=== PATIENT | male | born 1965 | race Caucasian/White ===

== ENCOUNTER 2024-08-20 15:34 | Inpatient (IN) | payer BC ==
[2024-08-20 15:56] LABS: BASOPHILS PERCENT AUTO 0.2 % (0.0-1.0); EOSINOPHILS PERCENT AUTO 0.2 % (0.0-6.0); HEMATOCRIT 42.1 % (42.0-52.0); HEMOGLOBIN 14.5 gm/dl (14.0-18.0); IMMATURE GRAN ABSOLUTE AUTO 0.18 K/mm3 (0.00-0.05); IMMATURE GRAN PERCENT AUTO 1.2 % (0.0-0.4); LYMPHOCYTES PERCENT AUTO 6.3 % (24.0-44.0); MEAN CORPUSCULAR HEMOGLOBIN 30.9 pg (28.0-32.0); MEAN CORPUSCULAR HGB CONC 34.4 g/dl (32.0-36.0); MEAN CORPUSCULAR VOLUME 89.6 fl (83.0-99.0); MEAN PLATELET VOLUME 9.4 fl (9.4-12.4); MONOCYTES ABSOLUTE AUTO 1.9 K/mm3 (0.0-0.8); MONOCYTES PERCENT AUTO 12.7 % (0.0-8.0); NEUTROPHILS ABSOLUTE AUTO 12.1 K/mm3 (1.8-7.7); NEUTROPHILS PERCENT AUTO 79.4 % (41.0-71.0); PLATELET COUNT,PLT 166 K/mm3 (150-400); WHITE BLOOD CELL COUNT,WBC 15.18 K/mm3 (3.9-11.3)
[2024-08-20 16:21] LABS: LACTIC ACID 1.6 mmol/L (0.4-2.0)
[2024-08-20 16:22] LABS: A/G RATIO 0.6 (1-2); ALANINE AMINOTRANSFERASE,ALT 44 U/L (16-63); ALBUMIN 2.7 g/dl (3.4-5.0); ALKALINE PHOSPHATASE 106 U/L (46-116); ANION GAP 18.5 (5-15); ASPARTATE AMNIOTRANSFERASE,AST 39 U/L (15-37); BILIRUBIN TOTAL 0.7 mg/dL (0.2-1.0); BLOOD UREA NITROGEN,BUN 17 mg/dL (7-18); BUN/CREATININE RATIO 14.2 (14-18); CALCIUM 9.2 mg/dL (8.5-10.1); CARBON DIOXIDE,CO2 23 mEq/L (21-32); CHLORIDE,CL 91 mEq/L (98-107); CREATININE 1.2 mg/dL (0.7-1.3); EST CRCL DRUG DOSING (CG) 67.59 mL/min; ESTIMATED GFR 69 mL/min (>60); GLUCOSE RANDOM 151 mg/dL (70-99); LIPASE 65 U/L (16-77); POTASSIUM,K 3.5 mEq/L (3.5-5.1); PROTEIN TOTAL,TP 7.6 g/dl (6.4-8.2); SODIUM,NA 129 mEq/L (136-145); TROPONIN I HIGH SENSITIVITY 8 pg/mL (<=76)
[2024-08-20 16:43] LABS: SLIDE REVIEW ABNORMAL SMEAR
[2024-08-20 16:49] LABS: C-REACTIVE PROTEIN > 25.00 mg/dL (<0.30)
[2024-08-20] MEDS ORDERED: Naloxone 0.4 MG/ML SDV IVPUSH PRN ×2 (16:51→19:19)
[2024-08-20] MEDS: fentaNYL 100 MCG/2 ML SDV IVPUSH ONE ×2 (16:59→20:00)
[2024-08-20] MEDS: Sodium Chloride 0.9% 10 ML Syringe FLUSH ONE (17:00)
[2024-08-20] MEDS: Sodium Chloride 0.9% 10 ML Syringe FLUSH PRN (17:00)
[2024-08-20] MEDS: Sodium Chloride 0.9% 1,000 ML IV SCH (17:00)
[2024-08-20] MEDS: Iopamidol 612 MG/ML 100 ML Bottle IVPUSH ONE (17:50)
[2024-08-20] MEDS: Piperacillin/Tazobactam 4.5 GM in Sodium Chloride 0.9% 100 ML IV ONE (18:50)
[2024-08-20] MEDS ORDERED: Propofol 200 MG/20 ML SDV ONE (19:35)
[2024-08-20] MEDS ORDERED: Midazolam 1 MG/ML 2 ML SDV ONE (19:35)
[2024-08-20] MEDS ORDERED: Rocuronium 50 MG/5 ML Vial ONE ×2 (19:36→20:58)
[2024-08-20] MEDS ORDERED: Dexamethasone 4 MG/ML 5 ML MDV ONE (19:36)
[2024-08-20] MEDS ORDERED: fentaNYL 250 MCG/5 ML SDV ONE (19:36)
[2024-08-20] MEDS ORDERED: EPINEPHrine 1 MG/ML SDV ONE (19:38)
[2024-08-20] MEDS ORDERED: Morphine 2 MG/ML SYRINGE IVPUSH PRN (19:53)
[2024-08-20 20:03] LABS: APPEARANCE,URINE CLEAR (Clear); BILIRUBIN,URINE NEGATIVE (Negative); COLOR,URINE YELLOW (Yellow); GLUCOSE,URINE NEGATIVE (Negative); KETONES,URINE 1+ (Negative); LEUKOCYTE ESTERASE,URINE NEGATIVE (Negative); NITRITE,URINE NEGATIVE (Negative); OCCULT BLOOD,URINE NEGATIVE (Negative); PROTEIN,URINE NEGATIVE (Negative)
[2024-08-20] MEDS ORDERED: Phenylephrine 1% 10 MG/ML SDV ONE (20:23)
[2024-08-20] MEDS ORDERED: Sodium Chloride 0.9% 100 ML ONE (20:24)
[2024-08-20] MEDS ORDERED: ceFAZolin 2 GM Vial ONE (20:29)
[2024-08-20] MEDS ORDERED: Sugammadex Sodium 200 MG/2 ML VIAL IV ONE (22:12)
[2024-08-20] MEDS ORDERED: fentaNYL 100 MCG/2 ML SDV IVPUSH PRN (22:21)
[2024-08-20] MEDS ORDERED: Sodium Chloride 0.9% 10 ML Syringe FLUSH PRN (22:21)
[2024-08-20] MEDS ORDERED: HYDROmorphone 0.5 MG/0.5 ML Syringe IVPUSH PRN (22:21)
[2024-08-20] MEDS ORDERED: Ondansetron 4 MG/2 ML SDV IVPUSH PRN (22:21)
[2024-08-20] MEDS: Lidocaine 1% with EPINEPHrine 1:100,000 20 ML MDV ONE (23:18)
[2024-08-20] MEDS: Bupivacaine 0.25% 10 ML SDV ONE (23:18)
[2024-08-20] MEDS: Piperacillin/Tazobactam 4.5 GM in Sodium Chloride 0.9% 100 ML IV SCH (23:21)
[2024-08-20] MEDS: Lactated Ringers 1,000 ML IV SCH (23:22)
[2024-08-20] MEDS: Ondansetron 4 MG/2 ML SDV IV PRN (23:42)
[2024-08-20] MEDS: Acetaminophen/oxyCODONE 325-5 MG Tab PO PRN (23:43)
[2024-08-21 05:28] LABS: BASOPHILS PERCENT AUTO 0.2 % (0.0-1.0); HEMATOCRIT 35.2 % (42.0-52.0); IMMATURE GRAN ABSOLUTE AUTO 0.07 K/mm3 (0.00-0.05); IMMATURE GRAN PERCENT AUTO 0.5 % (0.0-0.4); LYMPHOCYTES ABSOLUTE AUTO 0.6 K/mm3 (1.0-4.8); LYMPHOCYTES PERCENT AUTO 4.1 % (24.0-44.0); MEAN CORPUSCULAR HEMOGLOBIN 31.8 pg (28.0-32.0); MEAN CORPUSCULAR HGB CONC 34.9 g/dl (32.0-36.0); MEAN PLATELET VOLUME 9.3 fl (9.4-12.4); MONOCYTES ABSOLUTE AUTO 0.7 K/mm3 (0.0-0.8); MONOCYTES PERCENT AUTO 4.6 % (0.0-8.0); NEUTROPHILS ABSOLUTE AUTO 12.9 K/mm3 (1.8-7.7); NEUTROPHILS PERCENT AUTO 90.6 % (41.0-71.0); PLATELET COUNT,PLT 156 K/mm3 (150-400); RED BLOOD CELL COUNT 3.87 M/mm3 (4.52-5.90); WHITE BLOOD CELL COUNT,WBC 14.23 K/mm3 (3.9-11.3)
[2024-08-21 05:31] LABS: HEMOGLOBIN 12.3 gm/dl (14.0-18.0)
[2024-08-21 06:17] LABS: SLIDE REVIEW ABNORMAL SMEAR
[2024-08-21] MEDS: Pantoprazole 40 MG Tab.CR PO SCH (06:30)
[2024-08-21] MEDS: metFORMIN 500 MG Tab PO SCH (06:30)
[2024-08-21] MEDS: Acetaminophen 325 MG Tab PO PRN (08:23)
[2024-08-21] MEDS: atorvaSTATin 20 MG Tab PO SCH (08:24)
[2024-08-21] MEDS: Hydrochlorothiazide 25 MG Tab PO SCH (08:25)
[2024-08-21] MEDS: Allopurinol 300 MG Tab PO SCH (08:25)
[2024-08-21] MEDS: Lisinopril 5 MG Tab PO SCH (08:26)
[2024-08-21] MEDS ORDERED: Non-Formulary Medication 1 Each (Omeprazole [Omeprazole] 40 MG Capsule.Dr) PO SCH (09:00)
[2024-08-21] MEDS ORDERED: Sodium Chloride 0.9% 10 ML Syringe FLUSH SCH (09:00)
[2024-08-21] MEDS ORDERED: Non-Formulary Medication 1 Each (Metformin 500 MG Tab.Er) PO SCH (09:00)
[2024-08-21] MEDS: Insulin Lispro 100 Unit/ML 3 ML KwikPen SUBCUT SCH (12:12)
[2024-08-21] MEDS ORDERED: 50% Dextrose in Water 50 ML Syringe IVPUSH PRN (18:33)
[2024-08-21 18:53] LABS: HEMOGLOBIN A1C 6.6 %
[2024-08-21] MEDS: Insulin Glargine,Human Rec. Analog 100 Units/ML 3 ML Pen SUBCUT SCH (20:13)
[2024-08-22 04:31] LABS: BASOPHILS PERCENT AUTO 0.1 % (0.0-1.0); HEMATOCRIT 32.9 % (42.0-52.0); HEMOGLOBIN 11.3 gm/dl (14.0-18.0); IMMATURE GRAN ABSOLUTE AUTO 0.07 K/mm3 (0.00-0.05); IMMATURE GRAN PERCENT AUTO 0.5 % (0.0-0.4); LYMPHOCYTES ABSOLUTE AUTO 1.4 K/mm3 (1.0-4.8); LYMPHOCYTES PERCENT AUTO 9.5 % (24.0-44.0); MEAN CORPUSCULAR HEMOGLOBIN 31.6 pg (28.0-32.0); MEAN CORPUSCULAR HGB CONC 34.3 g/dl (32.0-36.0); MEAN CORPUSCULAR VOLUME 91.9 fl (83.0-99.0); MEAN PLATELET VOLUME 9.6 fl (9.4-12.4); MONOCYTES ABSOLUTE AUTO 0.8 K/mm3 (0.0-0.8); MONOCYTES PERCENT AUTO 5.3 % (0.0-8.0); NEUTROPHILS ABSOLUTE AUTO 12.2 K/mm3 (1.8-7.7); NEUTROPHILS PERCENT AUTO 84.6 % (41.0-71.0); PLATELET COUNT,PLT 177 K/mm3 (150-400); RED BLOOD CELL COUNT 3.58 M/mm3 (4.52-5.90); WHITE BLOOD CELL COUNT,WBC 14.39 K/mm3 (3.9-11.3)
[2024-08-22 05:03] LABS: A/G RATIO 0.5 (1-2); ALBUMIN 1.9 g/dl (3.4-5.0); BILIRUBIN TOTAL 0.3 mg/dL (0.2-1.0); EST CRCL DRUG DOSING (CG) 81.11 mL/min; PROTEIN TOTAL,TP 6.1 g/dl (6.4-8.2)
[2024-08-22 05:12] LABS: BILIRUBIN DIRECT 0.1 mg/dl (0.0-0.2)
[2024-08-22] MEDS: Insulin Lispro 100 Unit/ML 3 ML KwikPen SUBCUT SCH (06:39)
== END 2024-08-22 13:05 | DRG 263 ==
LOC: JD.ED 15:34 → JD.ICU 22:00
PROVIDERS: ADMIT Surgery; ATTEND Surgery
PROC: 0FT44ZZ Resection of Gallbladder, Percutaneous Endoscopic Approach (ICD-10-PCS; principal; 2024-08-21)
DX: K80.00 Calculus of gallbladder with acute cholecystitis without obstruction (principal); K82.A1 Gangrene of gallbladder in cholecystitis; K65.8 Other peritonitis; E11.65 Type 2 diabetes mellitus with hyperglycemia; K21.9 Gastro-esophageal reflux disease without esophagitis; E78.5 Hyperlipidemia, unspecified; I10 Essential (primary) hypertension; Z79.84 Long term (current) use of oral hypoglycemic drugs; Z79.899 Other long term (current) drug therapy
CPT/HCPCS: 00790; 36415; 74177; 74177-26; 76705; 76705-26; 78226; 78226-26; 80053; 81003; 82150; 82248; 82947; 83036; 83605; 83690; 84484; 85025; 86140; 88304; 96361; 96365; 96375; 96376; 99140; 99285-25; A9270-GY; A9537; J0171; J0665; J0690; J1100; J1815; J1815-GY; J2250; J2371; J2405; J2543; J2704; J3010; J3490; J7030; J7120; Q9967

== ENCOUNTER 2024-10-20 21:29 | Emergency (ER) | payer BC ==
[2024-10-20 23:12] LABS: APPEARANCE,URINE CLEAR (Clear); BILIRUBIN,URINE NEGATIVE (Negative); COLOR,URINE LIGHT YELLOW (Yellow); GLUCOSE,URINE NEGATIVE (Negative); KETONES,URINE NEGATIVE (Negative); LEUKOCYTE ESTERASE,URINE NEGATIVE (Negative); NITRITE,URINE NEGATIVE (Negative); OCCULT BLOOD,URINE NEGATIVE (Negative); PROTEIN,URINE NEGATIVE (Negative); UROBILINOGEN,URINE 0.2 (0.2-1.0)
[2024-10-20 23:26] LABS: BASOPHILS PERCENT AUTO 0.5 % (0.0-1.0); EOSINOPHILS ABSOLUTE AUTO 0.2 K/mm3 (0.0-0.4); EOSINOPHILS PERCENT AUTO 1.8 % (0.0-6.0); HEMATOCRIT 42.5 % (42.0-52.0); HEMOGLOBIN 14.4 gm/dl (14.0-18.0); IMMATURE GRAN ABSOLUTE AUTO 0.03 K/mm3 (0.00-0.05); IMMATURE GRAN PERCENT AUTO 0.4 % (0.0-0.4); LYMPHOCYTES ABSOLUTE AUTO 2.1 K/mm3 (1.0-4.8); LYMPHOCYTES PERCENT AUTO 25.1 % (24.0-44.0); MEAN CORPUSCULAR HEMOGLOBIN 30.4 pg (28.0-32.0); MEAN CORPUSCULAR HGB CONC 33.9 g/dl (32.0-36.0); MEAN CORPUSCULAR VOLUME 89.7 fl (83.0-99.0); MEAN PLATELET VOLUME 8.4 fl (9.4-12.4); MONOCYTES ABSOLUTE AUTO 0.7 K/mm3 (0.0-0.8); MONOCYTES PERCENT AUTO 8.5 % (0.0-8.0); NEUTROPHILS ABSOLUTE AUTO 5.4 K/mm3 (1.8-7.7); NEUTROPHILS PERCENT AUTO 63.7 % (41.0-71.0); PLATELET COUNT,PLT 191 K/mm3 (150-400); RED BLOOD CELL COUNT 4.74 M/mm3 (4.52-5.90)
[2024-10-20] MEDS: Sodium Chloride 0.9% 1,000 ML IV ONE (23:27)
[2024-10-20] MEDS: Sodium Chloride 0.9% 10 ML Syringe FLUSH ONE (23:29)
[2024-10-20 23:53] LABS: LACTIC ACID 2.2 mmol/L (0.4-2.0)
[2024-10-20 23:57] LABS: A/G RATIO 0.9 (1-2); ALBUMIN 3.7 g/dl (3.4-5.0); ANION GAP 18.5 (5-15); BILIRUBIN TOTAL 0.3 mg/dL (0.2-1.0); C-REACTIVE PROTEIN 0.55 mg/dL (<0.30); CALCIUM 8.9 mg/dL (8.5-10.1); EST CRCL DRUG DOSING (CG) 81.11 mL/min; POTASSIUM,K 3.5 mEq/L (3.5-5.1); PROTEIN TOTAL,TP 7.8 g/dl (6.4-8.2)
[2024-10-20] MEDS: Sodium Chloride 0.9% 10 ML Syringe FLUSH PRN (23:57)
[2024-10-20] MEDS: Iopamidol 612 MG/ML 30 ML SDV IVPUSH ONE (23:57)
[2024-10-20] MEDS: Iopamidol 612 MG/ML 100 ML Bottle IVPUSH ONE (23:57)
== END 2024-10-21 01:27 | disposition home or self-care (01) ==
LOC: JD.ED 21:29
DX: R50.9 Fever, unspecified (principal); I10 Essential (primary) hypertension; K21.9 Gastro-esophageal reflux disease without esophagitis; E11.9 Type 2 diabetes mellitus without complications; Z04.9 Encounter for examination and observation for unspecified reason; F17.200 Nicotine dependence, unspecified, uncomplicated; Z79.899 Other long term (current) drug therapy; Z79.84 Long term (current) use of oral hypoglycemic drugs
CPT/HCPCS: 36415; 71046; 71260; 74177; 80053; 81003; 83605; 85025; 86140; 87040; 87428; 96360; 99284; J7030; Q9967